=== PATIENT | male | born 1970 | race African-American/Black ===

== ENCOUNTER 2019-03-09 18:22 | Emergency (ER) | payer BC ==
[~2019-03-09] VITALS: Ht 188 cm; Wt 88.5 kg
[~2019-03-09 18:22] MED LIST: PRED-188 PO
[2019-03-09 18:33] VITALS: BP 117/71
[2019-03-09 18:54] LABS: Basophils # (auto) 0.1 uL; Basophils % (auto) 1.9 % (0.0-2.0); Eosinophils # (auto) 0.6 uL; Eosinophils % (auto) 11.2 % (0.0-7.0); Hematocrit 41.3 % (41.0-53.0); Hemoglobin 13.7 g/dL (13.5-17.5); Lymphocytes # (auto) 1.3 uL; Lymphocytes % (auto) 24.7 % (10.0-50.0); Mean Corpuscular Hemoglobin 31.1 pg (28.0-32.0); Mean Corpuscular Hgb Conc. 33.1 g/dL (32.0-36.0); Monocytes # (auto) 0.5 uL; Monocytes % (auto) 8.4 % (0.0-12.0); Neutrophils # (auto) 2.9 uL; Neutrophils % (auto) 53.8 % (37.0-80.0); Nucleated Red Blood Cells % 0.1 %; Platelet Count (auto) 272 10^3/uL (140-450); Red Blood Cells 4.39 10^6/uL (4.5-5.90); Red Cell Distribution Width 14.8 % (11.8-14.3); White Blood Cell 5.4 10^3/uL (4.4-10.8)
[2019-03-09 19:04] LABS: Albumin 3.2 g/dL (3.4-5.0); BUN/Creatinine Ratio 5.7; Calcium 8.7 mg/dL (8.5-10.1); Magnesium 2.4 mg/dL (1.6-2.6); Potassium 3.8 mmol/L (3.5-5.1)
[2019-03-09 19:06] LABS: Bilirubin, Total 4.4 mg/dL (0.2-1.0)
[2019-03-09 19:18] LABS: Urine Bacteria NONE SEEN /hpf (None Seen); Urine Blood Negative /uL (Negative); Urine Mucus FEW (None Seen); Urine WBC 1 /hpf (0 - 3)
== END 2019-03-09 23:16 | disposition left against medical advice (07) ==
LOC: ER 18:22
DX: R53.1 Weakness (principal); M79.675 Pain in left toe(s); Z53.21 Procedure and treatment not carried out due to patient leaving prior to being seen by health care provider; R20.0 Anesthesia of skin
CPT/HCPCS: 36415; 71046; 80053; 81001; 82962; 83735; 85025

== ENCOUNTER 2019-03-11 15:03 | Emergency (ER) | payer BC ==
[~2019-03-11] VITALS: Ht 188 cm; Wt 88.5 kg
[2019-03-11 15:55] VITALS: BP 122/59
[2019-03-11] MEDS ORDERED: SODIUM CHLORIDE 0.9% 1,000 ML IV ONE ×2 (16:44)
[2019-03-11] MEDS ORDERED: cefTRIAXone 1GM/50ML D5W 50 ML IV ONE (16:45)
[2019-03-11] MEDS ORDERED: metroNIDAZOLE 500MG/100ML 100 ML IV ONE (16:45)
[2019-03-11 17:28] LABS: Basophils # (auto) 0.1 uL; Eosinophils # (auto) 0.5 uL; Eosinophils % (auto) 8.3 % (0.0-7.0); Hematocrit 39.7 % (41.0-53.0); Hemoglobin 13.3 g/dL (13.5-17.5); Lymphocytes # (auto) 1.7 uL; Lymphocytes % (auto) 30.5 % (10.0-50.0); Mean Corpuscular Hemoglobin 31.3 pg (28.0-32.0); Mean Corpuscular Hgb Conc. 33.4 g/dL (32.0-36.0); Mean Corpuscular Volume 93.8 fL (80.0-100.0); Monocytes # (auto) 0.6 uL; Neutrophils # (auto) 2.7 uL; Neutrophils % (auto) 49.2 % (37.0-80.0); Platelet Count (auto) 262 10^3/uL (140-450); Red Blood Cells 4.23 10^6/uL (4.5-5.90); White Blood Cell 5.5 10^3/uL (4.4-10.8)
[2019-03-11 17:36] LABS: Albumin 3.1 g/dL (3.4-5.0); Calcium 8.4 mg/dL (8.5-10.1); Potassium 3.6 mmol/L (3.5-5.1)
[2019-03-11 17:40] LABS: BUN/Creatinine Ratio 8.1; Total Protein 7.8 g/dL (6.4-8.2)
[2019-03-11 17:46] LABS: INR 1.08 (0.9-1.15)
== END 2019-03-11 21:18 | disposition left against medical advice (07) ==
LOC: ER 15:03
DX: K74.60 Unspecified cirrhosis of liver (principal); R53.1 Weakness; F17.210 Nicotine dependence, cigarettes, uncomplicated; F12.10 Cannabis abuse, uncomplicated
CPT/HCPCS: 36415; 71046; 74176; 80053; 83605; 85025; 85610; 85730; 87040

== ENCOUNTER 2019-03-18 21:31 | Inpatient (IN) | payer BC ==
[~2019-03-18] VITALS: Ht 188 cm; Wt 88.0 kg
[2019-03-18 23:47] LABS: Basophils # (auto) 0 uL; Basophils % (auto) 0.4 % (0.0-2.0); Eosinophils # (auto) 0.3 uL; Eosinophils % (auto) 5.8 % (0.0-7.0); Hematocrit 38.2 % (41.0-53.0); Hemoglobin 12.9 g/dL (13.5-17.5); Lymphocytes # (auto) 1.5 uL; Lymphocytes % (auto) 27.3 % (10.0-50.0); Mean Corpuscular Hemoglobin 31.6 pg (28.0-32.0); Mean Corpuscular Hgb Conc. 33.7 g/dL (32.0-36.0); Mean Corpuscular Volume 93.6 fL (80.0-100.0); Monocytes # (auto) 0.5 uL; Monocytes % (auto) 8.9 % (0.0-12.0); Neutrophils # (auto) 3.2 uL; Neutrophils % (auto) 57.6 % (37.0-80.0); Nucleated Red Blood Cells % 0.1 %; Platelet Count (auto) 306 10^3/uL (140-450); Red Blood Cells 4.08 10^6/uL (4.5-5.90); Red Cell Distribution Width 15.6 % (11.8-14.3); White Blood Cell 5.6 10^3/uL (4.4-10.8)
[2019-03-19 00:01] LABS: INR 1.13 (0.9-1.15)
[2019-03-19 00:06] LABS: Alanine Aminotransferase 211 U/L (16-61); Albumin 3.1 g/dL (3.4-5.0); Anion Gap 9 (5-15); Aspartate Aminotransferase 136 U/L (15-37); BUN/Creatinine Ratio 7.4; Blood Urea Nitrogen 10 mg/dL (7-18); Calcium 8.7 mg/dL (8.5-10.1); Carbon Dioxide 25 mmol/L (21-32); Chloride 108 mmol/L (98-107); GFR African American 72 mL/min; GFR Non-African American 60 mL/min; Glucose 91 mg/dL (74-106); Potassium 3.5 mmol/L (3.5-5.1); Sodium 142 mmol/L (136-145)
[2019-03-19 00:11] LABS: Alkaline Phosphatase 570 U/L (45-117); Bilirubin, Total 5.5 mg/dL (0.2-1.0); Total Protein 7.9 g/dL (6.4-8.2)
[2019-03-19] MEDS ORDERED: SODIUM CHLORIDE 0.9% 1,000 ML IV ONE (01:30)
[2019-03-19 05:04] LABS: Alcohol, Urine < 3.0 mg/dL (0-5); Amphetamine Screen, Urine NEGATIVE (NEGATIVE); Barbiturate Scree,Urine NEGATIVE (NEGATIVE); Benzodiazephine Screen, Urine NEGATIVE (NEGATIVE); Cannabinoid Screen, Urine NEGATIVE (NEGATIVE); Cocaine Screen, Urine NEGATIVE (NEGATIVE); Opiate Scree,Urine NEGATIVE (NEGATIVE); Phencyclidine Screen, Urine NEGATIVE (NEGATIVE)
[2019-03-19] MEDS ORDERED: DOPamine 1600MCG/ML D5W 250 ML IV SCH (07:00)
[2019-03-19] MEDS ORDERED: ACETAMINOPHEN 500 MG TAB PO PRN (07:00)
[2019-03-19] MEDS ORDERED: MORPHINE SULF INJ 2 MG/ML SYRINGE 1ML IV PRN ×2 (07:00)
[2019-03-19] MEDS ORDERED: NITROGLYCERIN 0.4 MG SL TAB SL PRN (07:00)
[2019-03-19] MEDS ORDERED: ONDANSETRON HCL 4 MG/2 ML VIAL IV PRN (07:00)
[2019-03-19] MEDS ORDERED: HYDROcodone-ACET 5/325MG TAB PO PRN (07:00)
[2019-03-19] MEDS ORDERED: DOPamine 1600MCG/ML D5W 250 ML IV ONE (07:13)
[2019-03-19 08:02] LABS: Amylase 70 U/L (25-115); Lipase 260 U/L (73-393)
[2019-03-19] MEDS: FAMOTIDINE 20 MG TAB PO SCH (10:00)
[2019-03-19] MEDS: LEVOFLOXACIN 500MG 100 ML IV SCH (10:56)
[2019-03-19] MEDS ORDERED: FOLIC ACID 1 MG, MULTIPLE VITAMIN 10 ML, MAGNESIUM SULF SDV 50% 8 MEQ, THIAMINE INJ 100... INJ ONE ×5 (11:15)
[2019-03-19] MEDS ORDERED: chlordiazePOXIDE HCL 5 MG CAP PO PRN (13:15)
[2019-03-19] MEDS: metroNIDAZOLE 500MG/100ML 100 ML IV SCH ×2 (14:14→22:02)
[2019-03-19 15:48] LABS: Free T3 2.09 pg/mL (2.3-4.2); Free T4 (Free Thyroxine) 1.11 ng/dL (0.89-1.76)
--- NOTE | 2019-03-19 16:30 | NUR ---
Telemetry admit from ER RONALD GRGIGS admitted to Telemetry unit. Patient oriented to FRANK ART RN primary RN, unit, room, bed, and unit policies regarding patient care and visiting hours. Patient now on continuous telemetry monitoring, tele box # 17 and telemetry reading on arrival to unit is SINUS ERIC at 39 bpm. Patient weighed by bed scale and encouraged to call if they need something. All questions and concerns addressed, patient verbalized understanding.
--- NOTE | 2019-03-19 18:30 | NUR ---
Chino Martinez NP, for diet order; received immediate call back with new orders.
--- NOTE | 2019-03-19 18:37 | NUR ---
Stool sample sent to lab.
--- NOTE | 2019-03-19 19:00 | NUR ---
Patient requested to speak with security; paged security to his room.
[2019-03-19 19:52] VITALS: BP 124/68
[2019-03-19 20:16] VITALS: BP 124/68
[2019-03-19 22:00] VITALS: BP 116/67
--- NOTE | 2019-03-20 01:54 | NUR ---
Sent Urine sample to lab.
[2019-03-20 02:10] LABS: Urine Bacteria FEW /hpf (None Seen); Urine Blood Negative /uL (Negative); Urine Mucus FEW (None Seen); Urine WBC 3 /hpf (0 - 3)
--- NOTE | 2019-03-20 03:00 | NUR ---
Opening Shift Note Assumed care of patient, awake and alert. No S/S of distress/SOB or pain. Instructed on POC and to call for assist PRN, will continue to monitor for changes Q1hr and PRN.
[2019-03-20 05:00] VITALS: BP 108/61
[2019-03-20] MEDS: metroNIDAZOLE 500MG/100ML 100 ML IV SCH ×3 (06:10→21:59)
--- NOTE | 2019-03-20 06:40 | NUR ---
PATIENT STATED HE WAS FEELING WEIRD. I ASKED HIM WHAT DO YOU MEAN? PATIENT STATED THAT HE FELT A LITTLE DIZZY AND ARM TINGLING, BUT NO CHEST PAIN.
[2019-03-20 07:33] LABS: Basophils # (auto) 0 uL; Basophils % (auto) 0.6 % (0.0-2.0); Eosinophils # (auto) 0.3 uL; Eosinophils % (auto) 7.5 % (0.0-7.0); Hematocrit 37.1 % (41.0-53.0); Hemoglobin 12.4 g/dL (13.5-17.5); Lymphocytes % (auto) 25.2 % (10.0-50.0); Mean Corpuscular Hemoglobin 31.7 pg (28.0-32.0); Mean Corpuscular Hgb Conc. 33.5 g/dL (32.0-36.0); Mean Corpuscular Volume 94.7 fL (80.0-100.0); Monocytes # (auto) 0.4 uL; Monocytes % (auto) 10.6 % (0.0-12.0); Neutrophils # (auto) 2.2 uL; Neutrophils % (auto) 56.1 % (37.0-80.0); Nucleated Red Blood Cells % 0.1 %; Platelet Count (auto) 264 10^3/uL (140-450); Red Blood Cells 3.92 10^6/uL (4.5-5.90); Red Cell Distribution Width 15.7 % (11.8-14.3)
[2019-03-20 07:50] LABS: INR 1.11 (0.9-1.15); Partial Thromboplastin Time 28.2 sec (23.64-32.05)
[2019-03-20 07:57] LABS: Calcium 8.5 mg/dL (8.5-10.1); Potassium 3.5 mmol/L (3.5-5.1)
[2019-03-20 08:01] LABS: BUN/Creatinine Ratio 6.5
[2019-03-20] MEDS ORDERED: LEVOTHYROXINE SODIUM 25 MCG TAB PO ONE (08:30)
[2019-03-20 09:00] VITALS: BP 114/74
[2019-03-20 09:04] LABS: Albumin 2.8 g/dL (3.4-5.0); Bilirubin, Direct 4.5 mg/dL (0-0.2)
[2019-03-20 09:06] LABS: Bilirubin, Total 5.7 mg/dL (0.2-1.0); Total Protein 7.5 g/dL (6.4-8.2)
[2019-03-20] MEDS: LEVOFLOXACIN 500MG 100 ML IV SCH (09:31)
[2019-03-20] MEDS: FAMOTIDINE 20 MG TAB PO SCH (09:57)
[2019-03-20] MEDS ORDERED: GOLYTELY 4L KIT PO ONE (11:00)
[2019-03-20 12:12] LABS: Hepatitis A Ab IgM Negative; Hepatitis B Core IgM Negative
[2019-03-20 12:13] LABS: Hepatitis B Surface Antigen Negative (Negative); Hepatitis C Antibody Negative (Negative)
[2019-03-20 13:00] VITALS: BP 122/73
[2019-03-20 17:00] VITALS: BP 127/68
--- NOTE | 2019-03-20 19:20 | NUR ---
Opening Shift Note Received report from Rosette ESTRELLA. Assumed care of patient, awake and alert. No S/S of distress/SOB or pain. Instructed on POC and to call for assist PRN, will continue to monitor for changes Q1hr and PRN.
[2019-03-20 21:44] VITALS: BP 109/65
--- NOTE | 2019-03-20 23:50 | NUR ---
Advised NPO after midnight for procedure tomorrow, patient verbalized understanding.
[2019-03-21 05:02] VITALS: BP 112/72
[2019-03-21] MEDS: metroNIDAZOLE 500MG/100ML 100 ML IV SCH ×3 (05:57→21:29)
[2019-03-21] MEDS ORDERED: GOLYTELY 4L KIT PO ONE (06:00)
[2019-03-21] MEDS: LEVOTHYROXINE SODIUM 50 MCG TAB PO SCH (06:28)
[2019-03-21] MEDS ORDERED: LEVOTHYROXINE SODIUM 25 MCG TAB PO SCH (07:00)
[2019-03-21 07:22] LABS: % Iron Saturation 44.5 % (20-55)
--- NOTE | 2019-03-21 08:00 | NUR ---
Opening Shift Note Assumed care of patient, awake and alert. No S/S of distress/SOB or pain. Patient NPO for colonoscopy today. Instructed on POC and to call for assist PRN, will continue to monitor for changes Q1hr and PRN.
[2019-03-21] MEDS ORDERED: SODIUM CHLORIDE LOCK 0 ML ONE (08:38)
[2019-03-21] MEDS ORDERED: fentaNYL CITRATE 100 MCG/2 ML VL ONE (08:38)
[2019-03-21] MEDS ORDERED: MIDAZOLAM HCL 5 MG/ML-1ML VIAL ONE (08:39)
[2019-03-21] MEDS ORDERED: diphenhdrAMINE HCL 50 MG/1 ML VL ONE (08:39)
[2019-03-21 09:15] VITALS: BP 109/65
[2019-03-21] MEDS: LEVOFLOXACIN 500MG 100 ML IV SCH (09:19)
[2019-03-21] MEDS: FAMOTIDINE 20 MG TAB PO SCH (09:19)
[2019-03-21 09:43] LABS: Calcium 8.9 mg/dL (8.5-10.1); Magnesium 2.2 mg/dL (1.6-2.6); Potassium 3.5 mmol/L (3.5-5.1)
[2019-03-21 09:45] LABS: BUN/Creatinine Ratio 5.2
[2019-03-21 09:57] LABS: Bilirubin, Total 5.6 mg/dL (0.2-1.0); Total Protein 7.6 g/dL (6.4-8.2)
--- NOTE | 2019-03-21 10:00 | NUR ---
No Colonoscopy today Dr. Simon came to see the patient and stated that his heart rate is still low and that Dr. Diaz does not feel comfortable doing the procedure at this time. Patient was notified and diet is restarted.
[2019-03-21] MEDS ORDERED: POTASSIUM CHL 10 Meq TABLET PO ONE (10:45)
[2019-03-21 13:00] VITALS: BP 114/69
--- NOTE | 2019-03-21 13:45 | NUR ---
Flagyl/Refused at this time Brought Flagyl in for patient and he seemed stressed when this nurse informed him what it is and what it is for. He requested to hold it for now. He was also informed that Dr. Strickland will be coming to see him regarding his low heart rate. Will attempt to administer Flagyl again after a short time and see if patient accepts at that time.
--- NOTE | 2019-03-21 15:09 | NUR ---
FLAGYL GIVEN PATIENT AGREED TO FLAGYL, ADMINISTERED.
[2019-03-21 17:00] VITALS: BP 111/65
--- NOTE | 2019-03-21 19:25 | NUR ---
Opening Shift Note Received report from Kelin Vergara. Assumed care of patient, awake and alert, family at bedside. No S/S of distress/SOB or pain. Instructed on POC and to call for assist PRN, will continue to monitor for changes Q1hr and PRN.
[2019-03-21 21:44] VITALS: BP 132/81
[2019-03-22 05:23] VITALS: BP 121/67
[2019-03-22] MEDS: metroNIDAZOLE 500MG/100ML 100 ML IV SCH (05:54)
[2019-03-22] MEDS: LEVOTHYROXINE SODIUM 50 MCG TAB PO SCH (06:45)
[2019-03-22 08:54] VITALS: BP 109/66
[2019-03-22] MEDS: LEVOFLOXACIN 500MG 100 ML IV SCH (09:45)
[2019-03-22] MEDS: FAMOTIDINE 20 MG TAB PO SCH (09:45)
[2019-03-22] MEDS ORDERED: METR500T PO (09:48)
[2019-03-22] MEDS ORDERED: LEV50T PO (09:48)
[2019-03-22] MEDS ORDERED: LEVO-28 PO (09:48)
--- NOTE | 2019-03-22 11:40 | NUR ---
DISCHARGE ALL DISCHARGE PAPERWORK GIVEN TO PATIENT. ALL QUESTIONS ANSWERED. PRESCRIPTIONS GIVEN TO PATIENT. TELEMETRY REMOVED AND SENT TO [facility]. IV REMOVED, ID BAND REMOVED. PATIENT LEFT VIA PRIVATE VEHICLE AND TOOK ALL PERSONAL BELONGINGS WITH HIM.
== END 2019-03-22 12:06 | disposition home or self-care (01) | DRG 433 ==
LOC: ER 21:33 → TELE 21:34 → TELE-WESTW 03-19 17:50
PROVIDERS: ADMIT Nurse Practitioner Acute Care; ATTEND Internal Medicine
DX: K70.30 Alcoholic cirrhosis of liver without ascites (principal); E44.1 Mild protein-calorie malnutrition; K80.21 Calculus of gallbladder without cholecystitis with obstruction; K52.9 Noninfective gastroenteritis and colitis, unspecified; I48.91 Unspecified atrial fibrillation; E03.9 Hypothyroidism, unspecified; R00.1 Bradycardia, unspecified; F17.210 Nicotine dependence, cigarettes, uncomplicated; F12.90 Cannabis use, unspecified, uncomplicated; N18.2 Chronic kidney disease, stage 2 (mild); N20.0 Calculus of kidney; Z72.89 Other problems related to lifestyle; Z68.24 Body mass index [BMI] 24.0-24.9, adult; Z79.899 Other long term (current) drug therapy
CPT/HCPCS: 36415; 51702; 71045; 74176; 80048; 80053; 80061; 80074; 80076; 80307; 81001; 82150; 82390; 83516; 83540; 83550; 83690; 83735; 83880; 84439; 84443; 84481; 84484; 85025; 85610; 85652; 85730; 86038; 86141; 86225; 86235; 87045; 87493; 87899; 93005; 93306; 96361; 96365; 96366; 96367; G0378; J1956; J2250; J3490

== ENCOUNTER 2019-05-15 13:48 | Inpatient (IN) | payer BC ==
[~2019-05-15] VITALS: Ht 188 cm; Wt 67.9 kg
[~2019-05-15 13:48] MED LIST changes: +LEV50T PO; +LEVO-28 PO; +METR500T PO; -PRED-188 PO
[2019-05-15] MEDS ORDERED: SODIUM CHLORIDE 0.9% 1,000 ML IVB ONE (13:51)
[2019-05-15] MEDS ORDERED: ONDANSETRON HCL 4 MG/2 ML VIAL IV ONE ×2 (14:00→15:45)
[2019-05-15] MEDS ORDERED: HYDROmorphone HCL 2 MG/ML VL IV ONE ×2 (14:00→15:45)
[2019-05-15 14:27] LABS: Basophils # (auto) 0 uL; Basophils % (auto) 0.3 % (0.0-2.0); Eosinophils # (auto) 0.1 uL; Eosinophils % (auto) 1.5 % (0.0-7.0); Hematocrit 44.9 % (41.0-53.0); Hemoglobin 14.8 g/dL (13.5-17.5); Lymphocytes # (auto) 0.9 uL; Lymphocytes % (auto) 10.1 % (10.0-50.0); Mean Corpuscular Hemoglobin 31.2 pg (28.0-32.0); Mean Corpuscular Volume 94.5 fL (80.0-100.0); Monocytes # (auto) 0.4 uL; Monocytes % (auto) 4.6 % (0.0-12.0); Neutrophils # (auto) 7.8 uL; Neutrophils % (auto) 83.5 % (37.0-80.0); Platelet Count (auto) 262 10^3/uL (140-450); Red Blood Cells 4.75 10^6/uL (4.5-5.90); Red Cell Distribution Width 13.8 % (11.8-14.3); White Blood Cell 9.4 10^3/uL (4.4-10.8)
[2019-05-15 14:44] LABS: Albumin 3.4 g/dL (3.4-5.0); Calcium 8.9 mg/dL (8.5-10.1); Potassium 3.8 mmol/L (3.5-5.1)
[2019-05-15 14:48] LABS: BUN/Creatinine Ratio 10.2; Bilirubin, Total 0.9 mg/dL (0.2-1.0)
[2019-05-15] MEDS ORDERED: cefTRIAXone 1GM/50ML D5W 50 ML IV ONE (16:45)
[2019-05-15] MEDS ORDERED: TEMAZEPAM 15 MG CAP PO PRN (16:45)
[2019-05-15] MEDS ORDERED: NITROGLYCERIN 0.4 MG SL TAB SL PRN (16:45)
[2019-05-15] MEDS ORDERED: PROMETHAZINE HCL 25 MG/ML 1ML IV PRN (16:45)
[2019-05-15] MEDS ORDERED: MORPHINE SULFATE 4 MG/ML SYR/VIAL IV PRN (16:45)
[2019-05-15] MEDS ORDERED: MORPHINE SULF INJ 2 MG/ML SYRINGE 1ML IV PRN (16:45)
[2019-05-15] MEDS ORDERED: traMADol HCL 50 MG TAB PO PRN (16:45)
[2019-05-15 17:22] LABS: CRP High Sensitivity 0.86 mg/dL (< 0.3)
[2019-05-15] MEDS: SODIUM CHLORIDE 0.9% 1,000 ML IV SCH (17:30)
[2019-05-15] MEDS: FAMOTIDINE (10MG/ML) 2ML VL IV SCH (17:30)
[2019-05-15 20:51] VITALS: BP 119/71
[2019-05-15] MEDS: metroNIDAZOLE 500MG/100ML 100 ML IV SCH (21:30)
[2019-05-15 22:00] VITALS: BP 119/71
[2019-05-16] MEDS: SODIUM CHLORIDE 0.9% 1,000 ML IV SCH ×4 (00:31→23:55)
[2019-05-16 05:00] VITALS: BP 99/62
[2019-05-16] MEDS: FAMOTIDINE (10MG/ML) 2ML VL IV SCH ×2 (05:19→16:01)
[2019-05-16 05:56] LABS: Basophils # (auto) 0 uL; Basophils % (auto) 0.2 % (0.0-2.0); Eosinophils # (auto) 0.3 uL; Eosinophils % (auto) 4.3 % (0.0-7.0); Hematocrit 37.7 % (41.0-53.0); Hemoglobin 12.6 g/dL (13.5-17.5); Lymphocytes # (auto) 1.5 uL; Lymphocytes % (auto) 22.5 % (10.0-50.0); Mean Corpuscular Hemoglobin 31.9 pg (28.0-32.0); Mean Corpuscular Hgb Conc. 33.4 g/dL (32.0-36.0); Mean Corpuscular Volume 95.4 fL (80.0-100.0); Monocytes # (auto) 0.5 uL; Monocytes % (auto) 7.2 % (0.0-12.0); Neutrophils # (auto) 4.5 uL; Neutrophils % (auto) 65.8 % (37.0-80.0); Platelet Count (auto) 215 10^3/uL (140-450); Red Blood Cells 3.95 10^6/uL (4.5-5.90); Red Cell Distribution Width 13.9 % (11.8-14.3); White Blood Cell 6.8 10^3/uL (4.4-10.8)
[2019-05-16] MEDS: metroNIDAZOLE 500MG/100ML 100 ML IV SCH ×3 (06:14→21:43)
[2019-05-16 06:18] LABS: Potassium 4.1 mmol/L (3.5-5.1)
[2019-05-16 06:23] LABS: Albumin 2.7 g/dL (3.4-5.0); BUN/Creatinine Ratio 8.5; Calcium 7.8 mg/dL (8.5-10.1)
[2019-05-16 06:28] LABS: Bilirubin, Total 0.9 mg/dL (0.2-1.0); Total Protein 6.5 g/dL (6.4-8.2)
[2019-05-16 08:00] VITALS: BP 109/62
[2019-05-16] MEDS: cefTRIAXone 1GM/50ML D5W 50 ML IV SCH (10:03)
[2019-05-16 12:00] VITALS: BP 112/69
[2019-05-16] MEDS ORDERED: TAMSULOSIN HYDROCHLORIDE 0.4 MG CAP PO ONE (13:15)
[2019-05-16] MEDS ORDERED: HYOSCYAMINE SULF 0.125 MG ODT TAB PO PRN (13:15)
[2019-05-16] MEDS ORDERED: predniSONE 20 MG TAB PO SCH (13:30)
[2019-05-16] MEDS ORDERED: HYDROCORTISONE SOD SUCC 100 MG/2ML INJ VIAL IV ONE (15:45)
[2019-05-16 17:00] VITALS: BP 119/68
[2019-05-16] MEDS ORDERED: TAMSULOSIN HYDROCHLORIDE 0.4 MG CAP PO SCH (18:00)
[2019-05-16 21:35] LABS: Urine Bacteria NONE SEEN /hpf (None Seen); Urine Blood Negative /uL (Negative); Urine Mucus FEW (None Seen); Urine Specific Gravity 1.012 (1.001-1.035); Urine WBC <1 /hpf (0 - 3)
[2019-05-16] MEDS: HYDROCORTISONE SOD SUCC 100 MG/2ML INJ VIAL IV SCH (21:43)
[2019-05-16 22:00] VITALS: BP 107/61
[2019-05-17] MEDS: SODIUM CHLORIDE 0.9% 1,000 ML IV SCH (04:26)
[2019-05-17] MEDS: FAMOTIDINE (10MG/ML) 2ML VL IV SCH (05:02)
[2019-05-17] MEDS: metroNIDAZOLE 500MG/100ML 100 ML IV SCH (05:02)
[2019-05-17 05:13] VITALS: BP 90/40
[2019-05-17 09:00] VITALS: BP 113/60
[2019-05-17] MEDS: HYDROCORTISONE SOD SUCC 100 MG/2ML INJ VIAL IV SCH (09:29)
[2019-05-17] MEDS: cefTRIAXone 1GM/50ML D5W 50 ML IV SCH (09:29)
[2019-05-17 09:42] VITALS: BP 113/60
== END 2019-05-17 11:10 | disposition home or self-care (01) | DRG 392 ==
LOC: EDBD 13:48 → ER 13:52 → TELE 13:53 → TELE-EAST 19:54
PROVIDERS: ADMIT Internal Medicine; ATTEND Family Medicine
DX: K52.9 Noninfective gastroenteritis and colitis, unspecified (principal); K74.60 Unspecified cirrhosis of liver; E03.9 Hypothyroidism, unspecified; N20.0 Calculus of kidney; R00.1 Bradycardia, unspecified; F17.210 Nicotine dependence, cigarettes, uncomplicated; Z80.8 Family history of malignant neoplasm of other organs or systems; Z82.49 Family history of ischemic heart disease and other diseases of the circulatory system; Z79.899 Other long term (current) drug therapy
CPT/HCPCS: 36415; 74176; 80053; 81001; 82150; 82270; 83690; 84443; 84484; 85025; 85652; 86141; 87086; 87493; 94761; 96361; 96365; 96375; G0378; J0696; J2405; J3490

== ENCOUNTER 2019-05-28 06:52 | Emergency (ER) | payer BC ==
[~2019-05-28] VITALS: Ht 188 cm; Wt 89.4 kg
[~2019-05-28 06:52] MED LIST changes: -LEVO-28 PO; -METR500T PO
[2019-05-28 07:41] VITALS: BP 126/56
== END 2019-05-28 08:22 | disposition home or self-care (01) ==
LOC: ER 06:52
DX: S22.32XA Fracture of one rib, left side, initial encounter for closed fracture (principal)
CPT/HCPCS: 71046; 71101

== ENCOUNTER 2019-08-06 21:36 | Inpatient (IN) | payer BC ==
[~2019-08-06] VITALS: Ht 188 cm; Wt 85.4 kg
[2019-08-06 22:32] LABS: Urine Bacteria NONE SEEN /hpf (None Seen); Urine Blood Negative /uL (Negative); Urine Hyaline Cast FEW /lpf (0 - 2); Urine Mucus FEW (None Seen); Urine WBC 2 /hpf (0 - 3)
[2019-08-06 22:35] LABS: Basophils # (auto) 0 uL; Basophils % (auto) 0.1 % (0.0-2.0); Eosinophils # (auto) 0.1 uL; Eosinophils % (auto) 1.1 % (0.0-7.0); Hematocrit 39.9 % (41.0-53.0); Hemoglobin 13.2 g/dL (13.5-17.5); Lymphocytes # (auto) 1.5 uL; Lymphocytes % (auto) 16.6 % (10.0-50.0); Mean Corpuscular Hemoglobin 30.2 pg (28.0-32.0); Mean Corpuscular Volume 91.5 fL (80.0-100.0); Monocytes # (auto) 0.9 uL; Monocytes % (auto) 10.2 % (0.0-12.0); Neutrophils # (auto) 6.5 uL; Platelet Count (auto) 415 10^3/uL (140-450); Red Blood Cells 4.36 10^6/uL (4.5-5.90); Red Cell Distribution Width 14.8 % (11.8-14.3); White Blood Cell 9.1 10^3/uL (4.4-10.8)
[2019-08-06 22:49] LABS: Albumin 2.9 g/dL (3.4-5.0); Calcium 8.8 mg/dL (8.5-10.1); Potassium 3.3 mmol/L (3.5-5.1)
[2019-08-06 22:53] LABS: BUN/Creatinine Ratio 7.1; Bilirubin, Total 0.5 mg/dL (0.2-1.0); INR 1.18 (0.9-1.15); Partial Thromboplastin Time 28.2 sec (23.64-32.05); Total Protein 7.9 g/dL (6.4-8.2)
[2019-08-07] MEDS ORDERED: IOHEXOL 300 MG/ML 100ML BOTTLE IJ ONE (05:08)
[2019-08-07] MEDS ORDERED: PANTOPRAZOLE 80 MG in SODIUM CHL 0.9% 60 ML IV ONE (06:30)
[2019-08-07] MEDS ORDERED: ONDANSETRON HCL 4 MG/2 ML VIAL IV ONE (06:30)
[2019-08-07] MEDS ORDERED: PANTOPRAZOLE 40 MG/10 ML VIAL INJ IV ONE (06:30)
[2019-08-07] MEDS ORDERED: MORPHINE SULFATE 4 MG/ML SYR/VIAL IV PRN (06:30)
[2019-08-07] MEDS ORDERED: SODIUM CHLORIDE 0.9% 1,750 ML IV ONE (06:30)
[2019-08-07] MEDS ORDERED: MORPHINE SULFATE 4 MG/ML SYR/VIAL IV ONE (06:30)
[2019-08-07] MEDS ORDERED: ACETAMINOPHEN 325 MG TAB PO PRN ×2 (06:30→06:45)
[2019-08-07] MEDS ORDERED: VANCOMYCIN PER PHARMACY 1,000 MG IV SCH (06:30)
[2019-08-07] MEDS ORDERED: LORazepam 2MG/ML-1ML VIAL IV PRN (06:30)
[2019-08-07] MEDS ORDERED: ONDANSETRON HCL 4 MG/2 ML VIAL IV PRN (06:45)
[2019-08-07] MEDS ORDERED: LORazepam 0.5 MG TAB PO PRN (06:45)
[2019-08-07] MEDS ORDERED: PIPERACILLIN-TAZOB 3.375GM 100 ML IV ONE (06:45)
[2019-08-07] MEDS ORDERED: HYDROcodone-ACET 5/325MG TAB PO PRN (06:45)
[2019-08-07] MEDS ORDERED: DOCUSATE SOD 100 MG CAP PO PRN (06:45)
[2019-08-07] MEDS: LEVOTHYROXINE SODIUM 50 MCG TAB PO SCH (07:28)
[2019-08-07 07:52] LABS: Basophils # (auto) 0 uL; Basophils % (auto) 0.3 % (0.0-2.0); Eosinophils # (auto) 0.2 uL; Eosinophils % (auto) 2.1 % (0.0-7.0); Hematocrit 38.2 % (41.0-53.0); Hemoglobin 12.6 g/dL (13.5-17.5); Lymphocytes # (auto) 2.8 uL; Mean Corpuscular Hemoglobin 30.1 pg (28.0-32.0); Mean Corpuscular Hgb Conc. 32.9 g/dL (32.0-36.0); Mean Corpuscular Volume 91.6 fL (80.0-100.0); Monocytes % (auto) 10.9 % (0.0-12.0); Neutrophils # (auto) 5.6 uL; Neutrophils % (auto) 57.7 % (37.0-80.0); Platelet Count (auto) 354 10^3/uL (140-450); Red Blood Cells 4.17 10^6/uL (4.5-5.90); Red Cell Distribution Width 14.7 % (11.8-14.3); White Blood Cell 9.6 10^3/uL (4.4-10.8)
[2019-08-07 08:07] LABS: Albumin 2.6 g/dL (3.4-5.0); Anion Gap 5 (5-15); Blood Urea Nitrogen 9 mg/dL (7-18); Calcium 8.2 mg/dL (8.5-10.1); Carbon Dioxide 27 mmol/L (21-32); Chloride 109 mmol/L (98-107); Glucose 80 mg/dL (74-106); Sodium 141 mmol/L (136-145)
[2019-08-07 08:13] LABS: Alanine Aminotransferase 44 U/L (16-61); Alkaline Phosphatase 209 U/L (45-117); Aspartate Aminotransferase 22 U/L (15-37); BUN/Creatinine Ratio 8.2; Bilirubin, Total 0.7 mg/dL (0.2-1.0); GFR African American 92 mL/min; GFR Non-African American 76 mL/min; Total Protein 7.1 g/dL (6.4-8.2)
[2019-08-07 08:16] LABS: INR 1.22 (0.9-1.15); Partial Thromboplastin Time 28.5 sec (23.64-32.05)
[2019-08-07] MEDS: SODIUM CHLORIDE 0.9% 1,000 ML IV SCH ×2 (08:28→23:17)
[2019-08-07] MEDS ORDERED: VANCOMYCIN 1,250 MG in D5W 5% 250 ML IV SCH (10:00)
[2019-08-07] MEDS: PIPERACILLIN-TAZOB 3.375GM 100 ML IV SCH ×3 (12:28→23:12)
--- NOTE | 2019-08-07 14:35 | NUR ---
RECEIVED REPORT FROM DELORES PERKINS.
--- NOTE | 2019-08-07 14:46 | NUR ---
MS admit from ER RONALD GRIGGS admitted to tele/MS after SBAR received. Patient oriented to STEPHEN HERNANDEZ, primary RN, unit, room, bed, and unit policies regarding patient care and visiting hours. Patient weighed by bedscale and encouraged to call if they need something. All questions and concerns addressed, patient verbalized understanding.
[2019-08-07 17:00] VITALS: BP 123/64
[2019-08-07 20:00] VITALS: BP 105/78
--- NOTE | 2019-08-07 20:00 | NUR ---
Opening Shift Note Assumed care of patient, awake and alert, oriented x 4. On room air with even and unlabored respirations, no S/S of distress or SOB. Patient ambulates and turns in bed independently. Patient denies pain. Bed low locked position with side rails up x 2 and call light within reach. Instructed on POC and to call for assist PRN, will continue to monitor for changes Q1hr and PRN.
[2019-08-07 21:57] VITALS: BP 108/78
[2019-08-08 04:40] VITALS: BP 100/56
[2019-08-08] MEDS: LEVOTHYROXINE SODIUM 50 MCG TAB PO SCH (06:12)
[2019-08-08] MEDS: PIPERACILLIN-TAZOB 3.375GM 100 ML IV SCH ×4 (06:13→23:18)
--- NOTE | 2019-08-08 07:04 | NUR ---
Closing Note patient resting in bed with even and unlabored respirations, no s/s of distress. IV's intact and patent. Endorsed care to day shift RN.
--- NOTE | 2019-08-08 07:30 | NUR ---
Opening Shift Note RECEIVED REPORT FROM NOC RN. Assumed care of patient, awake and alert. No S/S of distress/SOB or pain. BED IN LOWEST, LOCKED POSITION WITH SIDERAILS UP x2 AND CALL LIGHT WITHIN REACH. Instructed on POC and to call for assist PRN, will continue to monitor for changes Q1hr and PRN.
[2019-08-08 07:35] LABS: Albumin 2.2 g/dL (3.4-5.0); Calcium 7.8 mg/dL (8.5-10.1)
[2019-08-08 07:38] LABS: BUN/Creatinine Ratio 4.2; Bilirubin, Total 0.7 mg/dL (0.2-1.0)
--- NOTE | 2019-08-08 07:40 | NUR ---
LAB CALLED WITH CRITICAL POTASSIUM OF 2.9.
[2019-08-08 07:42] LABS: Potassium 2.9 mmol/L (3.5-5.1)
--- NOTE | 2019-08-08 07:45 | NUR ---
[facility]PITAL[facility] FOR CRITICAL LAB.
--- NOTE | 2019-08-08 07:53 | NUR ---
HOSPITALIST RINA RETURNED PAGE. NEW ORDERS RECEIVED AND CARRIED OUT.
[2019-08-08] MEDS ORDERED: POTASSIUM CHL 20 Meq TABLET PO ONE (08:00)
[2019-08-08] MEDS ORDERED: POTASSIUM EFFERVESENT TAB 25 MEQ PO ONE (09:15)
[2019-08-08 09:20] VITALS: BP 90/54
--- NOTE | 2019-08-08 09:55 | NUR ---
DR. MORAES AT BEDSIDE. NEW ORDERS RECEIVED.
[2019-08-08] MEDS ORDERED: POTASSIUM CHLORIDE 40 MEQ, LIDOCAINE 1% (LOCAL ANESTH.) 4 ML in SODIUM CHL 0.9% 100 ML IV ONE (10:00)
[2019-08-08] MEDS ORDERED: metroNIDAZOLE 500 MG TAB PO ONE (10:15)
[2019-08-08 13:16] VITALS: BP 100/56
[2019-08-08] MEDS: metroNIDAZOLE 500 MG TAB PO SCH ×2 (14:00→21:20)
[2019-08-08] MEDS: SODIUM CHLORIDE 0.9% 1,000 ML IV SCH (15:55)
[2019-08-08 16:57] VITALS: BP 117/67
--- NOTE | 2019-08-08 19:30 | NUR ---
Opening Note pt A&Ox4. on room air. pt does not report pain at this time. pt ambulates to toilet, and has stated having BM today, and pt denies blood in stool. respirations are even and nonlabored on room air.
[2019-08-08 20:00] VITALS: BP 99/64
[2019-08-08 23:05] VITALS: BP 99/64
[2019-08-09 05:27] VITALS: BP 89/54
[2019-08-09] MEDS: LEVOTHYROXINE SODIUM 50 MCG TAB PO SCH (05:35)
[2019-08-09] MEDS: metroNIDAZOLE 500 MG TAB PO SCH ×2 (05:35→13:18)
[2019-08-09] MEDS: PIPERACILLIN-TAZOB 3.375GM 100 ML IV SCH ×3 (05:35→18:00)
--- NOTE | 2019-08-09 06:55 | NUR ---
Closing Note patient resting in bed with even and unlabored respirations, no s/s of distress. IV to rt hand intact and patent. Endorsed care to day shift RN.
[2019-08-09 07:05] LABS: Basophils # (auto) 0 uL; Basophils % (auto) 0.4 % (0.0-2.0); Eosinophils # (auto) 0.3 uL; Eosinophils % (auto) 4.5 % (0.0-7.0); Hematocrit 35.5 % (41.0-53.0); Hemoglobin 11.8 g/dL (13.5-17.5); Lymphocytes # (auto) 2.2 uL; Mean Corpuscular Hemoglobin 30.1 pg (28.0-32.0); Mean Corpuscular Hgb Conc. 33.1 g/dL (32.0-36.0); Mean Corpuscular Volume 90.9 fL (80.0-100.0); Monocytes # (auto) 0.7 uL; Monocytes % (auto) 10.3 % (0.0-12.0); Neutrophils # (auto) 3.4 uL; Neutrophils % (auto) 51.8 % (37.0-80.0); Nucleated Red Blood Cells % 0.1 %; Platelet Count (auto) 334 10^3/uL (140-450); Red Cell Distribution Width 14.8 % (11.8-14.3); White Blood Cell 6.6 10^3/uL (4.4-10.8)
[2019-08-09 07:39] LABS: Albumin 2.2 g/dL (3.4-5.0); BUN/Creatinine Ratio 4.1; Calcium 7.9 mg/dL (8.5-10.1); Potassium 3.2 mmol/L (3.5-5.1)
[2019-08-09 07:42] LABS: Bilirubin, Total 0.6 mg/dL (0.2-1.0); Total Protein 6.3 g/dL (6.4-8.2)
[2019-08-09 09:00] VITALS: BP 102/58
[2019-08-09] MEDS ORDERED: POTASSIUM CHLORIDE 40 MEQ, LIDOCAINE 1% (LOCAL ANESTH.) 4 ML in SODIUM CHL 0.9% 100 ML IV ONE (09:15)
[2019-08-09] MEDS: POTASSIUM CHL 20 Meq TABLET PO ONE ×2 (09:15→10:04)
[2019-08-09] MEDS ORDERED: MORPHINE SULF INJ 2 MG/ML SYRINGE 1ML IV PRN (09:30)
[2019-08-09] MEDS: SODIUM CHLORIDE 0.9% 1,000 ML IV SCH (10:04)
--- NOTE | 2019-08-09 10:47 | NUR ---
PT REFUSING POTASSIUM PO PILLS. REQUESTING DISSOLVABLE TABLETS. LEFT A VOICEMAIL FOR DR MORAES. AWAITING CALLBACK.
[2019-08-09] MEDS ORDERED: POTASSIUM EFFERVESENT TAB 25 MEQ PO ONE (11:15)
[2019-08-09 13:21] VITALS: BP 99/67
[2019-08-09 17:03] VITALS: BP 93/55
[2019-08-09 17:12] LABS: BUN/Creatinine Ratio 5.2; Calcium 7.7 mg/dL (8.5-10.1); Potassium 3.7 mmol/L (3.5-5.1)
--- NOTE | 2019-08-09 17:41 | NUR ---
NEW POTASSIUM LEVEL IS 3.7. WILL PROCEED WITH DISCHARGE ORDERED.
--- NOTE | 2019-08-09 18:00 | NUR ---
PT SIGNED DISCHARGE PAPERWORK. AWAITING PERSONAL TRANSPORTATION IN ROOM. IV IN PLACE.
== END 2019-08-09 18:30 | disposition home or self-care (01) | DRG 432 ==
LOC: ER 21:36 → OVERFLOW 21:37 → WEST WING 08-07 14:37
PROVIDERS: ADMIT Hospitalist; ATTEND Internal Medicine
DX: K74.60 Unspecified cirrhosis of liver (principal); E43 Unspecified severe protein-calorie malnutrition; K92.2 Gastrointestinal hemorrhage, unspecified; E03.9 Hypothyroidism, unspecified; E87.6 Hypokalemia; F17.210 Nicotine dependence, cigarettes, uncomplicated; K52.9 Noninfective gastroenteritis and colitis, unspecified; Z82.49 Family history of ischemic heart disease and other diseases of the circulatory system; Z68.24 Body mass index [BMI] 24.0-24.9, adult
CPT/HCPCS: 36415; 36600; 71045; 74177; 80048; 80053; 81001; 82270; 82553; 82805; 83605; 83735; 84443; 84484; 85025; 85379; 85384; 85610; 85730; 86850; 86900; 86901; 87040; 87086; 87493; 96361; 96365; 96367; 96375; C9113; G0378; J2001; J2405; J2543; J7060

== ENCOUNTER 2022-03-20 18:18 | Emergency (ER) | payer SELFPAY ==
[~2022-03-20] VITALS: Ht 182.9 cm; Wt 91.0 kg
[2022-03-20 19:08] VITALS: BP 115/58
[2022-03-20 20:35] LABS: Urine Bacteria NONE SEEN /hpf (None Seen); Urine Blood Negative /uL (Negative); Urine Specific Gravity 1.005 (1.001-1.035); Urine WBC 6 /hpf (0 - 3)
[2022-03-20] MEDS ORDERED: PRED20TA2 PO (21:17)
[2022-03-20] MEDS ORDERED: predniSONE 20 MG TAB PO ONE (21:30)
== END 2022-03-20 21:29 | disposition home or self-care (01) ==
LOC: EDBD 18:18 → ER 18:18
DX: N47.2 Paraphimosis (principal); F17.210 Nicotine dependence, cigarettes, uncomplicated; F12.10 Cannabis abuse, uncomplicated
CPT/HCPCS: 54450; 81001; 99284; J7512